=== PATIENT | male | born 1950 | race Caucasian/White ===

== ENCOUNTER 2024-02-06 14:25 | Emergency (ER) | payer MEDICARE, BC ==
[2024-02-06] MEDS: Albuterol/Ipratropium 3.0-0.5 MG/3 ML Neb Soln NEB ONE (15:51)
[2024-02-06] MEDS: Sodium Chloride 0.9% 2.5 ML Syringe FLUSH PRN (15:51)
[2024-02-06] MEDS: Sodium Chloride 0.9% 10 ML Syringe FLUSH PRN (15:51)
[2024-02-06 16:07] LABS: BASOPHILS ABSOLUTE AUTO 0.08 K/uL (0.00-0.20); BASOPHILS PERCENT AUTO 0.8 % (0.0-1.0); EOSINOPHILS ABSOLUTE AUTO 0.12 K/uL (0.00-0.45); EOSINOPHILS PERCENT AUTO 1.1 % (0.0-6.0); HEMATOCRIT 42.6 % (42.0-52.0); HEMOGLOBIN 14.4 g/dL (14.0-18.0); IMMATURE GRAN PERCENT AUTO 4.7 % (0.0-0.4); LYMPHOCYTES ABSOLUTE AUTO 1.41 K/uL (1.00-4.80); LYMPHOCYTES PERCENT AUTO 13.2 % (24.0-44.0); MEAN CORPUSCULAR HEMOGLOBIN 29.9 pg (28.0-32.0); MEAN CORPUSCULAR HGB CONC 33.8 g/dL (32.0-36.0); MEAN CORPUSCULAR VOLUME 88.4 fL (83.0-99.0); MEAN PLATELET VOLUME 9.5 fL (9.4-12.4); MONOCYTES ABSOLUTE AUTO 0.69 K/uL (0.00-0.80); MONOCYTES PERCENT AUTO 6.5 % (0.0-8.0); NEUTROPHILS ABSOLUTE AUTO 7.86 K/uL (1.80-7.70); NEUTROPHILS PERCENT AUTO 73.7 % (41.0-71.0); PLATELET COUNT,PLT 377 K/uL (150-400); RED BLOOD CELL COUNT 4.82 M/uL (4.52-5.90); WHITE BLOOD CELL COUNT,WBC 10.66 K/uL (3.9-11.3)
[2024-02-06 16:28] LABS: A/G RATIO 0.5 (0.9-1.6); ALBUMIN 2.5 g/dL (3.4-5.0); BILIRUBIN TOTAL 0.6 mg/dL (0.2-1.0); CALCIUM 8.9 mg/dL (8.5-10.1); CARBON DIOXIDE,CO2 28.7 mmol/L (21.0-32.0); CREATININE 1.3 mg/dL (0.8-1.3); EST CRCL DRUG DOSING (CG) 49.78 mL/min; POTASSIUM,K 4.4 mmol/L (3.5-5.1); PROTEIN TOTAL,TP 7.8 g/dL (6.4-8.2)
[2024-02-06 16:45] LABS: CORONAVIRUS COVID-19 NAA NEGATIVE (NEGATIVE); INFLUENZA A NAA NEGATIVE (NEGATIVE); INFLUENZA B NAA NEGATIVE (NEGATIVE)
[2024-02-06] MEDS: Iopamidol 755 MG/ML 500 ML Multipack Bottle IVPUSH STA (17:15)
[2024-02-06] MEDS: Azithromycin 250 MG Tab PO ONE (18:49)
== END 2024-02-06 19:00 | disposition home or self-care (01) ==
LOC: MW.ED 14:25
DX: J43.9 Emphysema, unspecified (principal); J40 Bronchitis, not specified as acute or chronic; R04.2 Hemoptysis; R19.8 Other specified symptoms and signs involving the digestive system and abdomen; R91.1 Solitary pulmonary nodule; I10 Essential (primary) hypertension; E78.00 Pure hypercholesterolemia, unspecified; Z79.899 Other long term (current) drug therapy; Z79.82 Long term (current) use of aspirin
CPT/HCPCS: 0240U; 36415; 71275; 80053; 84484; 85025; 93005; 94640; 99285; A9270; J3490; Q9967; 93010; 99284; J7620-GY

== ENCOUNTER 2024-12-03 20:57 | Observation (INO) | payer MEDICARE, BC ==
[2024-12-03] MEDS: Morphine 4 MG/ML Syringe IVPUSH ONE (21:58)
[2024-12-03] MEDS: Lidocaine 4% 1 each Patch TOP PRN (21:58)
[2024-12-03] MEDS: Acetaminophen 500 MG Tab PO ONE (22:21)
[2024-12-03] MEDS ORDERED: Naloxone 0.4 MG/ML SDV IVPUSH PRN (23:02)
[2024-12-03] MEDS: HYDROmorphone 0.5 MG/0.5 ML Syringe IVPUSH ONE (23:28)
[2024-12-03 23:32] LABS: BASOPHILS ABSOLUTE AUTO 0.04 K/uL (0.00-0.20); BASOPHILS PERCENT AUTO 0.5 % (0.0-1.0); EOSINOPHILS ABSOLUTE AUTO 0.08 K/uL (0.00-0.45); HEMATOCRIT 41.5 % (42.0-52.0); HEMOGLOBIN 14.1 g/dL (14.0-18.0); IMMATURE GRAN ABSOLUTE AUTO 0.02 K/uL (0.00-0.05); IMMATURE GRAN PERCENT AUTO 0.3 % (0.0-0.4); LYMPHOCYTES ABSOLUTE AUTO 1.42 K/uL (1.00-4.80); LYMPHOCYTES PERCENT AUTO 18.5 % (24.0-44.0); MEAN CORPUSCULAR HEMOGLOBIN 29.1 pg (28.0-32.0); MEAN CORPUSCULAR VOLUME 85.6 fL (83.0-99.0); MEAN PLATELET VOLUME 8.5 fL (9.4-12.4); MONOCYTES ABSOLUTE AUTO 0.51 K/uL (0.00-0.80); MONOCYTES PERCENT AUTO 6.6 % (0.0-8.0); NEUTROPHILS PERCENT AUTO 73.1 % (41.0-71.0); PLATELET COUNT,PLT 222 K/uL (150-400); RED BLOOD CELL COUNT 4.85 M/uL (4.52-5.90); WHITE BLOOD CELL COUNT,WBC 7.67 K/uL (3.9-11.3)
[2024-12-03 23:53] LABS: A/G RATIO 0.9 (0.9-1.6); ALBUMIN 3.5 g/dL (3.4-5.0); BILIRUBIN TOTAL 0.4 mg/dL (0.2-1.0); CARBON DIOXIDE,CO2 27.5 mmol/L (21.0-32.0); CREATININE 1.2 mg/dL (0.8-1.3); EST CRCL DRUG DOSING (CG) 53.19 mL/min; POTASSIUM,K 4.7 mmol/L (3.5-5.1); PROTEIN TOTAL,TP 7.3 g/dL (6.4-8.2)
[2024-12-04 05:58] LABS: BASOPHILS ABSOLUTE AUTO 0.04 K/uL (0.00-0.20); BASOPHILS PERCENT AUTO 0.6 % (0.0-1.0); EOSINOPHILS ABSOLUTE AUTO 0.12 K/uL (0.00-0.45); EOSINOPHILS PERCENT AUTO 1.7 % (0.0-6.0); HEMATOCRIT 42.3 % (42.0-52.0); HEMOGLOBIN 14.2 g/dL (14.0-18.0); IMMATURE GRAN ABSOLUTE AUTO 0.02 K/uL (0.00-0.05); IMMATURE GRAN PERCENT AUTO 0.3 % (0.0-0.4); LYMPHOCYTES ABSOLUTE AUTO 1.82 K/uL (1.00-4.80); MEAN CORPUSCULAR HGB CONC 33.6 g/dL (32.0-36.0); MEAN CORPUSCULAR VOLUME 86.5 fL (83.0-99.0); MEAN PLATELET VOLUME 9.1 fL (9.4-12.4); MONOCYTES ABSOLUTE AUTO 0.59 K/uL (0.00-0.80); MONOCYTES PERCENT AUTO 8.1 % (0.0-8.0); NEUTROPHILS ABSOLUTE AUTO 4.68 K/uL (1.80-7.70); NEUTROPHILS PERCENT AUTO 64.3 % (41.0-71.0); PLATELET COUNT,PLT 225 K/uL (150-400); RED BLOOD CELL COUNT 4.89 M/uL (4.52-5.90); WHITE BLOOD CELL COUNT,WBC 7.27 K/uL (3.9-11.3)
[2024-12-04 06:18] LABS: CALCIUM 9.2 mg/dL (8.5-10.1); CARBON DIOXIDE,CO2 28.7 mmol/L (21.0-32.0); CREATININE 1.2 mg/dL (0.8-1.3); EST CRCL DRUG DOSING (CG) 53.19 mL/min; POTASSIUM,K 4.5 mmol/L (3.5-5.1)
[2024-12-04] MEDS: Morphine 15 MG Tab.ER PO SCH (08:25)
[2024-12-04] MEDS ORDERED: Sodium Chloride 0.9% 2.5 ML Syringe FLUSH PRN (08:27)
[2024-12-04] MEDS ORDERED: Sodium Chloride 0.9% 10 ML Syringe FLUSH PRN (08:27)
[2024-12-04] MEDS ORDERED: Polyethylene Glycol 3350 Powder 17 GM Packet PO PRN (08:27)
[2024-12-04] MEDS ORDERED: Acetaminophen 325 MG Tab PO PRN (08:27)
[2024-12-04] MEDS ORDERED: Docusate Sodium 100 MG Cap PO PRN (08:27)
[2024-12-04] MEDS ORDERED: Ondansetron 4 MG/2 ML SDV IVPUSH PRN (08:27)
[2024-12-04] MEDS ORDERED: Acetaminophen/HYDROcodone 325-5 MG Tab PO PRN (08:29)
[2024-12-04] MEDS ORDERED: Albuterol 8 GM Inhaler INH PRN (08:29)
[2024-12-04] MEDS: HYDROmorphone 1 MG/ML Syringe IVPUSH PRN (09:22)
[2024-12-04] MEDS: Iopamidol 755 MG/ML 500 ML Multipack Bottle IVPUSH STA (10:45)
[2024-12-04] MEDS: Metoprolol Succinate 25 MG Tab.ER PO SCH (10:47)
[2024-12-04] MEDS ORDERED: Albuterol/Ipratropium 3.0-0.5 MG/3 ML Neb Soln NEB PRN (14:08)
[2024-12-04] MEDS: Amitriptyline 25 MG Tab PO SCH (20:55)
[2024-12-04] MEDS: atorvaSTATin 20 MG Tab PO SCH (20:56)
[2024-12-05 05:56] LABS: BASOPHILS ABSOLUTE AUTO 0.03 K/uL (0.00-0.20); BASOPHILS PERCENT AUTO 0.4 % (0.0-1.0); EOSINOPHILS ABSOLUTE AUTO 0.09 K/uL (0.00-0.45); EOSINOPHILS PERCENT AUTO 1.3 % (0.0-6.0); HEMATOCRIT 42.5 % (42.0-52.0); HEMOGLOBIN 14.1 g/dL (14.0-18.0); IMMATURE GRAN ABSOLUTE AUTO 0.02 K/uL (0.00-0.05); IMMATURE GRAN PERCENT AUTO 0.3 % (0.0-0.4); LYMPHOCYTES ABSOLUTE AUTO 1.61 K/uL (1.00-4.80); MEAN CORPUSCULAR HGB CONC 33.2 g/dL (32.0-36.0); MEAN CORPUSCULAR VOLUME 87.3 fL (83.0-99.0); MEAN PLATELET VOLUME 8.9 fL (9.4-12.4); MONOCYTES ABSOLUTE AUTO 0.62 K/uL (0.00-0.80); MONOCYTES PERCENT AUTO 8.9 % (0.0-8.0); NEUTROPHILS ABSOLUTE AUTO 4.62 K/uL (1.80-7.70); NEUTROPHILS PERCENT AUTO 66.1 % (41.0-71.0); PLATELET COUNT,PLT 223 K/uL (150-400); RED BLOOD CELL COUNT 4.87 M/uL (4.52-5.90); WHITE BLOOD CELL COUNT,WBC 6.99 K/uL (3.9-11.3)
[2024-12-05 06:23] LABS: CARBON DIOXIDE,CO2 26.9 mmol/L (21.0-32.0); CREATININE 1.1 mg/dL (0.8-1.3); EST CRCL DRUG DOSING (CG) 58.02 mL/min; POTASSIUM,K 4.3 mmol/L (3.5-5.1)
[2024-12-05] MEDS ORDERED: HYDROmorphone 1 MG/ML Syringe IVPUSH PRN (09:36)
[2024-12-05] MEDS: Lidocaine 5% Oint 35.44 GM Tube TOP SCH (11:07)
[2024-12-05] MEDS: Lidocaine 4% 1 each Patch TOP SCH (11:08)
[2024-12-05] MEDS: HYDROmorphone 2 MG Tab PO PRN (12:18)
== END 2024-12-05 15:30 | disposition home or self-care (01) ==
LOC: MW.ED 20:57 → MW.MS 12-04 00:38
PROVIDERS: ADMIT Internal Medicine; ATTEND Internal Medicine
DX: S22.31XA Fracture of one rib, right side, initial encounter for closed fracture (principal); I25.10 Atherosclerotic heart disease of native coronary artery without angina pectoris; I10 Essential (primary) hypertension; J96.11 Chronic respiratory failure with hypoxia; I71.40 Abdominal aortic aneurysm, without rupture, unspecified; J43.9 Emphysema, unspecified; Z95.1 Presence of aortocoronary bypass graft; F17.210 Nicotine dependence, cigarettes, uncomplicated; Z79.82 Long term (current) use of aspirin; Z79.899 Other long term (current) drug therapy; X58.XXXA Exposure to other specified factors, initial encounter
CPT/HCPCS: 36415; 51701; 51703; 71101; 71275; 80048; 80053; 85025; 93005; 96374; 96375; 96376; 97162; 99285; A9270; G0378; J1171; J2270; Q9967; 93010; 99283

== ENCOUNTER 2025-01-03 07:10 | Inpatient (IN) | payer MEDICARE, BC ==
[2025-01-03] MEDS: Morphine 4 MG/ML Syringe IVPUSH ONE (07:42)
[2025-01-03 07:59] LABS: BASOPHILS ABSOLUTE AUTO 0.03 K/uL (0.00-0.20); BASOPHILS PERCENT AUTO 0.3 % (0.0-1.0); EOSINOPHILS ABSOLUTE AUTO 0.11 K/uL (0.00-0.45); EOSINOPHILS PERCENT AUTO 1.2 % (0.0-6.0); HEMATOCRIT 41.8 % (42.0-52.0); HEMOGLOBIN 14.3 g/dL (14.0-18.0); IMMATURE GRAN ABSOLUTE AUTO 0.05 K/uL (0.00-0.05); IMMATURE GRAN PERCENT AUTO 0.6 % (0.0-0.4); LYMPHOCYTES ABSOLUTE AUTO 1.25 K/uL (1.00-4.80); LYMPHOCYTES PERCENT AUTO 14.2 % (24.0-44.0); MEAN CORPUSCULAR HEMOGLOBIN 29.2 pg (28.0-32.0); MEAN CORPUSCULAR HGB CONC 34.2 g/dL (32.0-36.0); MEAN CORPUSCULAR VOLUME 85.5 fL (83.0-99.0); MEAN PLATELET VOLUME 8.9 fL (9.4-12.4); MONOCYTES ABSOLUTE AUTO 0.43 K/uL (0.00-0.80); MONOCYTES PERCENT AUTO 4.9 % (0.0-8.0); NEUTROPHILS ABSOLUTE AUTO 6.96 K/uL (1.80-7.70); NEUTROPHILS PERCENT AUTO 78.8 % (41.0-71.0); PLATELET COUNT,PLT 211 K/uL (150-400); RED BLOOD CELL COUNT 4.89 M/uL (4.52-5.90); WHITE BLOOD CELL COUNT,WBC 8.83 K/uL (3.9-11.3)
[2025-01-03] MEDS: HYDROmorphone 0.5 MG/0.5 ML Syringe IVPUSH ONE (08:17)
[2025-01-03 08:24] LABS: A/G RATIO 0.8 (0.9-1.6); ALBUMIN 3.4 g/dL (3.4-5.0); BILIRUBIN TOTAL 0.3 mg/dL (0.2-1.0); CALCIUM 8.8 mg/dL (8.5-10.1); CARBON DIOXIDE,CO2 28.8 mmol/L (21.0-32.0); CREATININE 1.3 mg/dL (0.8-1.3); EST CRCL DRUG DOSING (CG) 49.1 mL/min; POTASSIUM,K 4.4 mmol/L (3.5-5.1); PROTEIN TOTAL,TP 7.5 g/dL (6.4-8.2)
[2025-01-03 08:27] LABS: LACTIC ACID 1.4 mmol/L (0.4-2.0)
[2025-01-03] MEDS: Lidocaine 4% Patch TOP ONE (09:08)
[2025-01-03] MEDS: Sodium Chloride 0.9% 2.5 ML Syringe FLUSH PRN (09:10)
[2025-01-03] MEDS: Sodium Chloride 0.9% 10 ML Syringe FLUSH PRN (09:10)
[2025-01-03] MEDS: Iopamidol 755 MG/ML 500 ML Multipack Bottle IVPUSH STA (09:32)
[2025-01-03] MEDS ORDERED: Naloxone 0.4 MG/ML SDV IVPUSH PRN (10:55)
[2025-01-03] MEDS: HYDROmorphone 1 MG/ML Syringe IVPUSH PRN (11:07)
[2025-01-03] MEDS ORDERED: Sodium Chloride 0.9% 2.5 ML Syringe FLUSH PRN (11:15)
[2025-01-03] MEDS ORDERED: Sodium Chloride 0.9% 10 ML Syringe FLUSH PRN (11:15)
[2025-01-03] MEDS ORDERED: Ondansetron 4 MG/2 ML SDV IVPUSH PRN (11:15)
[2025-01-03] MEDS ORDERED: Albuterol/Ipratropium 3.0-0.5 MG/3 ML Neb Soln NEB PRN (11:15)
[2025-01-03] MEDS ORDERED: Albuterol 8 GM Inhaler INH PRN (11:18)
[2025-01-03] MEDS: Pantoprazole 40 MG in Sodium Chloride 0.9% 10 ML IVPUSH SCH (11:55)
[2025-01-03] MEDS: Ciprofloxacin in D5W 400 MG in Premix Bag 1 BAG IV SCH (11:56)
[2025-01-03] MEDS: Sodium Chloride 0.9% 1,000 ML IV SCH (12:01)
[2025-01-03] MEDS: Metoprolol Succinate 25 MG Tab.ER PO SCH (13:38)
[2025-01-03] MEDS: metroNIDAZOLE/Normal Saline 500 MG in Premix Bag 1 BAG IV SCH ×2 (13:38→17:24)
[2025-01-03] MEDS: HYDROmorphone 2 MG/ML Syringe IVPUSH PRN (13:40)
[2025-01-03] MEDS: Tamsulosin 0.4 MG Cap.ER PO ONE (14:00)
[2025-01-03] MEDS: Docusate Sodium 100 MG Cap PO SCH (14:00)
[2025-01-03 14:44] LABS: APPEARANCE,URINE CLEAR; BILIRUBIN,URINE NEGATIVE (NEGATIVE); COLOR,URINE YELLOW; GLUCOSE,URINE 100 mg/dL (NEGATIVE); KETONES,URINE NEGATIVE (NEGATIVE); LEUKOCYTE ESTERASE,URINE NEGATIVE (NEGATIVE); NITRITE,URINE NEGATIVE (NEGATIVE); OCCULT BLOOD,URINE NEGATIVE (NEGATIVE); PH,URINE 7.5 (5.0-8.0); PROTEIN,URINE TRACE mg/dL (NEGATIVE)
[2025-01-03 15:10] LABS: BACTERIA,URINE FEW (NEGATIVE); EPITHELIAL CELLS,URINE RARE (NONE-FEW); RBC,URINE 0-1 (0-2/HPF); WBC,URINE 0-1 (0-5/HPF)
[2025-01-03] MEDS: Morphine 15 MG Tab.ER PO SCH (20:59)
[2025-01-03] MEDS ORDERED: Amoxicillin/Clavulanate K 875-125 MG Tab PO SCH (21:00)
[2025-01-04 06:09] LABS: BASOPHILS ABSOLUTE AUTO 0.02 K/uL (0.00-0.20); BASOPHILS PERCENT AUTO 0.4 % (0.0-1.0); EOSINOPHILS ABSOLUTE AUTO 0.07 K/uL (0.00-0.45); EOSINOPHILS PERCENT AUTO 1.2 % (0.0-6.0); HEMATOCRIT 37.9 % (42.0-52.0); IMMATURE GRAN ABSOLUTE AUTO 0.02 K/uL (0.00-0.05); IMMATURE GRAN PERCENT AUTO 0.4 % (0.0-0.4); LYMPHOCYTES ABSOLUTE AUTO 1.27 K/uL (1.00-4.80); LYMPHOCYTES PERCENT AUTO 22.6 % (24.0-44.0); MEAN CORPUSCULAR HEMOGLOBIN 29.3 pg (28.0-32.0); MEAN CORPUSCULAR HGB CONC 34.3 g/dL (32.0-36.0); MEAN CORPUSCULAR VOLUME 85.6 fL (83.0-99.0); MEAN PLATELET VOLUME 8.8 fL (9.4-12.4); MONOCYTES ABSOLUTE AUTO 0.44 K/uL (0.00-0.80); MONOCYTES PERCENT AUTO 7.8 % (0.0-8.0); NEUTROPHILS ABSOLUTE AUTO 3.81 K/uL (1.80-7.70); NEUTROPHILS PERCENT AUTO 67.6 % (41.0-71.0); PLATELET COUNT,PLT 195 K/uL (150-400); RED BLOOD CELL COUNT 4.43 M/uL (4.52-5.90); WHITE BLOOD CELL COUNT,WBC 5.63 K/uL (3.9-11.3)
[2025-01-04 06:27] LABS: CALCIUM 8.5 mg/dL (8.5-10.1); CARBON DIOXIDE,CO2 29.6 mmol/L (21.0-32.0); EST CRCL DRUG DOSING (CG) 63.65 mL/min; MAGNESIUM 1.9 mg/dL (1.8-2.4); POTASSIUM,K 4.2 mmol/L (3.5-5.1)
[2025-01-04] MEDS ORDERED: Metoprolol Succinate 25 MG Tab.ER PO SCH (09:00)
[2025-01-04] MEDS: Polyethylene Glycol 3350 Powder 17 GM Packet PO SCH (09:01)
[2025-01-04] MEDS: Lactulose Soln 10 GM/15 ML 15 ML UD Cup PO SCH (14:43)
== END 2025-01-05 11:05 | disposition home or self-care (01) | DRG 392 ==
LOC: MW.ED 07:10 → MW.MS 11:00 → OBSVTOIN 01-04 16:05 → MW.MS 01-04 16:29
PROVIDERS: ADMIT Internal Medicine; ATTEND Internal Medicine
DX: K59.00 Constipation, unspecified (principal); J96.11 Chronic respiratory failure with hypoxia; I10 Essential (primary) hypertension; Z66 Do not resuscitate; E78.00 Pure hypercholesterolemia, unspecified; M19.90 Unspecified osteoarthritis, unspecified site; I71.40 Abdominal aortic aneurysm, without rupture, unspecified; J44.9 Chronic obstructive pulmonary disease, unspecified; R91.1 Solitary pulmonary nodule; I72.3 Aneurysm of iliac artery; I25.10 Atherosclerotic heart disease of native coronary artery without angina pectoris; M54.2 Cervicalgia; G89.29 Other chronic pain; F11.90 Opioid use, unspecified, uncomplicated; J43.9 Emphysema, unspecified; Z95.1 Presence of aortocoronary bypass graft; Z99.81 Dependence on supplemental oxygen; Z79.51 Long term (current) use of inhaled steroids; Z79.82 Long term (current) use of aspirin; Z79.899 Other long term (current) drug therapy
CPT/HCPCS: 36415 ×2; 74176; 74177; 80048; 80053; 81001; 82947 ×2; 83605 ×2; 83690; 83735; 84484; 85025 ×2; 93005 ×2; 96374; 96375; 99285; A9270 ×11; J0744 ×3; J1171 ×4; J1836 ×4; J2270; J2470 ×2; J7030 ×2; Q9967; 93010; 96365; 96366; 96367; 96376; 99284; G0378

== ENCOUNTER 2025-05-14 13:25 | Emergency (ER) | payer MEDICARE, BC ==
[2025-05-14] MEDS: methylPREDNISolone Sodium Succinate 125 MG/2 ML SDV IVPUSH ONE (13:50)
[2025-05-14 13:52] LABS: BASOPHILS ABSOLUTE AUTO 0.02 K/uL (0.00-0.20); BASOPHILS PERCENT AUTO 0.2 % (0.0-1.0); EOSINOPHILS ABSOLUTE AUTO 0.04 K/uL (0.00-0.45); EOSINOPHILS PERCENT AUTO 0.4 % (0.0-6.0); IMMATURE GRAN ABSOLUTE AUTO 0.06 K/uL (0.00-0.05); IMMATURE GRAN PERCENT AUTO 0.6 % (0.0-0.4); LYMPHOCYTES ABSOLUTE AUTO 0.97 K/uL (1.00-4.80); LYMPHOCYTES PERCENT AUTO 8.9 % (24.0-44.0); MEAN PLATELET VOLUME 8.6 fL (9.4-12.4); MONOCYTES ABSOLUTE AUTO 0.69 K/uL (0.00-0.80); MONOCYTES PERCENT AUTO 6.3 % (0.0-8.0); NEUTROPHILS ABSOLUTE AUTO 9.12 K/uL (1.80-7.70); NEUTROPHILS PERCENT AUTO 83.6 % (41.0-71.0); NRBC ABSOLUTE 0.00 K/uL (0.00-0.02); NRBC PERCENT 0.0 /100WBC (0.0-0.2); PLATELET COUNT,PLT 407 K/uL (150-400); RED BLOOD CELL COUNT 4.31 M/uL (4.52-5.90); WHITE BLOOD CELL COUNT,WBC 10.90 K/uL (3.9-11.3)
[2025-05-14] MEDS: Magnesium Sulfate 2 GM/50 mL 2 GM in Premix Bag 1 BAG IV ONE (14:21)
[2025-05-14 14:29] LABS: LACTIC ACID 1.6 mmol/L (0.4-2.0)
[2025-05-14 14:35] LABS: A/G RATIO 0.6 (0.9-1.6); ALANINE AMINOTRANSFERASE,ALT 19.0 IU/L (14-63); ASPARTATE AMNIOTRANSFERASE,AST 15.0 IU/L (15-37); BILIRUBIN TOTAL 0.4 mg/dL (0.2-1.0); BLOOD UREA NITROGEN,BUN 15.0 mg/dL (7.0-18.0); CARBON DIOXIDE,CO2 31.3 mmol/L (21.0-32.0); CHLORIDE,CL 96.0 mmol/L (98-107); CREATININE 1.3 mg/dL (0.8-1.3); EST CRCL DRUG DOSING (CG) 47.76 mL/min; GLUCOSE RANDOM 176.0 mg/dL (74-106); POTASSIUM,K 4.0 mmol/L (3.5-5.1); PRO B-TYPE NATRIUR PEPT,BNPPRO 853.0 pg/mL (0-450); PROTEIN TOTAL,TP 7.7 g/dL (6.4-8.2); SODIUM,NA 135.0 mmol/L (136-148)
[2025-05-14 14:37] LABS: ESTIMATED GFR 57.0 mL/min (>60)
[2025-05-14] MEDS: Iopamidol 755 MG/ML 500 ML Multipack Bottle IVPUSH STA (15:01)
[2025-05-14] MEDS: Acetaminophen/HYDROcodone 325-5 MG Tab PO ONE (16:15)
[2025-05-14 16:37] LABS: APPEARANCE,URINE CLEAR; GLUCOSE,URINE NEGATIVE (NEGATIVE); OCCULT BLOOD,URINE NEGATIVE (NEGATIVE)
== END 2025-05-14 19:42 ==
LOC: MW.ED 13:25
DX: J90 Pleural effusion, not elsewhere classified (principal); R04.2 Hemoptysis; R09.02 Hypoxemia; I10 Essential (primary) hypertension; M19.90 Unspecified osteoarthritis, unspecified site; E78.00 Pure hypercholesterolemia, unspecified; Z75.3 Unavailability and inaccessibility of health-care facilities; Z79.82 Long term (current) use of aspirin; Z79.899 Other long term (current) drug therapy
CPT/HCPCS: 36415; 71275; 80053; 81003; 83605; 83690; 83735; 83880; 84484; 85025; 87040; 93005; 96361; 96365; 96368; 96375; 99285; A9270; J0692; J2919; J3475; J7030; Q9967; 93010